=== PATIENT | male | born 1950 | race Caucasian/White ===

== ENCOUNTER → 2017-06-07 | Outpatient (CLI) | payer OTHER ==
--- NOTE | 2017-06-08 09:27 | RADIOLOGY REPORT (SQ) ---
EXAM DESCRIPTION: MRI LUMBAR SPINE WITHOUT COMPLETED DATE/TIME: 06/07/2017 4:36 pm REASON FOR STUDY: LUMBAR RADICULOPATHY M54.5 LOW BACK PAIN COMPARISON: None. TECHNIQUE: Sagittal and Axial imaging includes T1, T2, STIR and gradient echo sequences. Coronal T2/ HASTE imaging. LIMITATIONS: None. FINDINGS: VISUALIZED UPPER ABDOMEN: Limited evaluation. No acute or suspicious findings suggested. SEGMENTATION: No transitional anatomy. The lowest well-developed disc space is labeled L5-S1. ALIGNMENT: Anatomic. VERTEBRAE: Intact. BONE MARROW: Fatty degenerative vertebral body endplate changes at L4-5 and L5-S1. DISC SIGNAL: Diffuse decreased T2 weighted intervertebral disc signal. Mild disc space loss of heigh t at L4-5. 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 CORD AND CONUS: Normal in size and signal intensity. Conus at the L1 level. SOFT TISSUES: No aortic aneurysm seen. No bulky retroperitoneal adenopathy or mass. No paraspinal mas s or fluid. T11-12: No central canal or right foraminal narrowing. Mild left foraminal stenosis from asymmetric facet hypertrophy T12-L1: No central or foraminal stenosis. Mild bilateral facet hypertrophy. L1-L2: Broad diffuse posterior disc bulging is present with mild facet and ligament hypertrophy. Bor derline central canal narrowing. Mild bilateral inferior foraminal narrowing without exiting L1 nerv e root impingement. L2-L3: Mild diffuse posterior disc bulge is present with a small central protrusion. Mild bilateral facet hypertrophy and ligamentum flavum thickening. Borderline central canal narrowing. Mild bilate ral inferior foraminal narrowing without exiting L2 nerve root impingement. L3-L4: Mild central canal stenosis results from broad diffuse posterior disc bulge, central disc prot rusion, and moderate bilateral facet and ligament hypertrophy. There is mild to moderate bilateral i nferior foraminal narrowing without exiting L3 nerve root impingement. L4-L5: Broad diffuse posterior disc bulging and bony spurring left greater than right, very bulky lorene ateral facet and ligament hypertrophy causes mild central canal stenosis. There is asymmetric flatte chela of the thecal sac along the left lateral recess containing the proximal left L5 nerve root. Thi s is best shown on axial T2 image 26. Moderate bilateral foraminal narrowing is present without defi nite exiting L4 nerve root impingement. L5-S1: Broad diffuse posterior disc bulge and bony spurring left greater than right, very bulky bilat eral facet hypertrophy left greater than right. Borderline central canal narrowing. Mild inferior r ight foraminal narrowing. High-grade left foraminal stenosis with effacement of the fat around the e xiting left L5 nerve root. SACRUM: Visualized upper sacrum intact. OTHER: No other significant findings. IMPRESSION: Degenerative changes at L4-5 and L5-S1 with asymmetric flattening of the left L5 nerve r oot as above. TECHNICAL DOCUMENTATION: JOB ID: [id number] [employer]- All Rights Reserved
== END ==
LOC: RAD 15:47
PROVIDERS: ATTEND Physician Assistant
DX: M54.5 Low back pain (principal); M54.16 Radiculopathy, lumbar region
CPT/HCPCS: 72148